=== PATIENT | female | born 1945 | race Caucasian/White ===

== ENCOUNTER → 2018-11-24 15:10 | Outpatient (POV) | payer MEDICARE, SELFPAY | PROVIDERS: Visit Provider Dermatology | DX: Z00.00 Encounter for general adult medical examination without abnormal findings (principal) ==

== ENCOUNTER → 2019-04-26 12:30 | Outpatient (CLI) | payer MEDICARE, OTHER, SELFPAY ==
--- NOTE | 2019-04-26 12:46 | CA_ITS ---
APPROVED REPORT Right Lower Extremity Venous Study for Historian Research Assistant: KELI Indications Lower Extremity Pain: Right Lower Extremity Edema: Right Vein Imaging CFV (R): compressive, spontaneous, phasic, augmentation FEM (R): compressive, spontaneous, phasic, augmentation POP (R): compressive, spontaneous, phasic, augmentation PTV (R): Compressible GSV (R): Compressible Peroneals (R):Compressible GAS (R): Compressible Findings No evidence of DVT or superficial thrombophlebitis in the veins scanned of the right lower extremity. 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 6.1 cm complex lesion with bloodflow seen right proximal medial calf, ? lymph node. Conclusion No evidence of DVT or superficial thrombophlebitis in the veins scanned of the right lower extremity. 3.1 cm complex lesion seen right popliteal fossa. The wall is slightly thickened. this may represent a complex Moore's cyst. Abscess or necrotic lymph node is included in the differential diagnosis. 6.1 cm complex lesion with bloodflow seen right proximal medial calf, ? lymph node. Critical Notification Physician Notified Date: 04/26/2019 Time: 13:23 Physician Name: Flower Winkler Electronically signed by : Tru Arzate MD 04/27/2019 09:39:00
== END ==
PROVIDERS: PCP Nurse Practitioner Family; Visit Provider Nurse Practitioner Family
DX: M79.604 Pain in right leg (principal); R60.0 Localized edema
CPT/HCPCS: 93971

== ENCOUNTER → 2019-04-30 07:36 | Outpatient (CLI) | payer MEDICARE, OTHER, SELFPAY ==
[2019-04-30 07:54] LABS: Blood Urea Nitrogen 21 mg/dL (7-18); Creatinine,Serum 0.95 mg/dL (0.55-1.02); Estimated Glomerular Filt Rate 58 ml/min (>60); GFR (African American) 70 ML/MIN (>60)
--- NOTE | 2019-04-30 08:23 | MR_ITS ---
PROCEDURE: MR LOWER LEG RT WO/W CON CLINICAL INDICATION: MASS OF RIGHT LOWER LEG Pain and swelling, pain behind the knee COMPARISON: CA VENOUS DOPPLER LE RT from 04/26/2019 TECHNIQUE: Multiplanar multi echo sequences are performed without and with gadolinium enhancement FINDINGS: Metallic artifact obscures the popliteal region somewhat. There does appear to be a Moore's cyst extending from the popliteal region measuring approximately 4 x 2.6 cm. There is a 8.5 x 2.1 cm elliptical area of abnormal signal intensity along the anterior aspect of the medial head of the gastrocnemius muscle in the proximal leg. This is isointense on T1 and the comes hyperintense on T2. This appears to be extrinsic to the gastrocnemius muscle but within the fascia and may represent a hematoma. Cannot exclude the possibility of a solid lesion such as a sarcoma. No definite enhancement. This however is difficult to ascertain due to the moderate degree of artifact. No other significant anomalies are evident. IMPRESSION: There is a longitudinal spindle shaped area of abnormal signal intensity along the anterior aspect of the right gastrocnemius muscle medial head in the proximal leg as described above. This may represent a hematoma. Cannot exclude the possibility of a neoplastic process. Suggest short-term ultrasound follow-up in 2-4 weeks. If this is not show resolution then, fine needle aspiration could be performed with sonographic guidance. 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 Dictated by: Tru Arzate MD 05/01/2019 13:22 Signed by: <Electronically signed by Tru Arzate MD in [facility]> 05/04/2019 20:10
== END ==
PROVIDERS: Visit Provider Internal Medicine Adolescent Medicine
DX: R22.41 Localized swelling, mass and lump, right lower limb (principal)
CPT/HCPCS: 36415; 73720; 82565; 84520; A9576

== ENCOUNTER → 2019-06-21 13:56 | Outpatient (CLI) | payer SELFPAY ==
--- NOTE | 2019-06-21 14:00 | CT_ITS ---
PROCEDURE: CT HEART W CALCIUM SCORE CLINICAL HISTORY: SCREENING COMPARISON: No exams were available for comparison TECHNIQUE: Axial images obtained with sagittal and coronal reformats. All CT scans at this facility use one or more dose reduction, viz: automated exposure control, ma/kV adjustment per patient size (including targeted exams where dose is matched to indication, i.e. head), or iterative reconstruction technique. FINDINGS: Coronary artery calcium score is 0 indicating no identifiable atherosclerotic plaque with very low cardiovascular disease risk. Incidental old granulomatous disease. There is some scarring in the right paraspinal region. Degenerative changes thoracic spine IMPRESSION: Very low cardiovascular disease risk Dictated by: Tru Arzate MD 06/21/2019 18:07 Electronically signed by Tru Arzate MD in [facility] 06/21/2019 18:07
== END ==
PROVIDERS: PCP Nurse Practitioner Family; Visit Provider Internal Medicine Cardiovascular Disease
DX: Z13.6 Encounter for screening for cardiovascular disorders (principal)
CPT/HCPCS: 75571

== ENCOUNTER → 2019-06-21 14:07 | Outpatient (CLI) | payer MEDICARE, OTHER, SELFPAY ==
--- NOTE | 2019-06-21 14:13 | US_ITS ---
PROCEDURE: US EXTREMITY RT LIMITED CLINICAL INDICATION: RT LOW LEG MASS COMPARISON: CA VENOUS DOPPLER LE RT from 04/26/2019 MR LOWER LEG RT WO/W CON from 04/30/2019 FINDINGS: In the deep aspect of the right lower leg there is a oval area of decreased echogenicity. The measurements are somewhat difficult to ascertain due to the long length of the lesion this is at least 6-8 cm in length and 1.7 cm in thickness corresponding to the MRI abnormality. This is hypoechoic but not cystic. Once again, the differential diagnosis would include a hematoma or neoplasm. In addition, there is a Moore's cyst noted posteriorly and superiorly in the popliteal fossa at 4 x 3.5 cm with some thickening of the capsule of the cyst. IMPRESSION: 1. Hypoechoic oval soft tissue mass in the right leg corresponding to the MRI abnormality. Differential diagnosis includes hematoma or neoplasm. Consider fine needle aspiration with sonographic guidance with on-site pathologist.. 2. Moore's cyst Dictated by: Tru Arzate MD 06/21/2019 17:25 Electronically signed by Tru Arzate MD in [facility] 06/21/2019 17:25
== END ==
PROVIDERS: PCP Nurse Practitioner Family; Visit Provider Nurse Practitioner Family
DX: R22.41 Localized swelling, mass and lump, right lower limb (principal)
CPT/HCPCS: 76882

== ENCOUNTER → 2020-02-14 16:24 | Outpatient (CLI) | payer MEDICARE, OTHER, SELFPAY ==
[2020-02-14 18:25] LABS: Chloride 103 mmol/L (98-107); Sodium 139 mmol/L (136-145)
[2020-02-14 18:26] LABS: Potassium 4.1 mmoL/L (3.5-5.1)
[2020-02-14 18:28] LABS: Alanine Aminotransferase 24 U/L (12-78); Alkaline Phosphatase 76 U/L (38-126); Anion Gap 9.1 mEq/L (5-15); Aspartate Amino Transferase 30 U/L (14-36); Bilirubin,Total 0.7 mg/dl (0.2-1.3); Blood Urea Nitrogen 16 mg/dl (7-17); Carbon Dioxide 31 mmol/L (22.0-30.0); Cholesterol 141 mg/dl (140-200); Estimated Glomerular Filt Rate 70 ml/min (>60); GFR (African American) 85 ML/MIN (>60); Triglycerides 126 mg/dl (30-150); VLDL Cholesterol 25 mg/dL (0-40)
[2020-02-14 18:29] LABS: Albumin Level 4.4 g/dl (3.5-5.0); Albumin/Globulin Ratio 1.7 (1.1-1.8); Basophils # 0.1 K/mm3 (0-0.2); Basophils % 0.8 % (0.1-2.0); Calcium 9.5 mg/dl (8.4-10.2); Chol/HDL Ratio 2.4 (1-3.5); Eosinophils # 0.2 K/mm3 (0.0-0.4); Eosinophils % 2.8 % (0.1-12.0); Globulin 2.6 g/dL (1.3-3.2); Glucose 99 mg/dl (74-100); HDL Cholesterol 58 mg/dl (40-60); Hematocrit 40.8 % (37.0-47.0); Hemoglobin 13.4 g/dL (12.2-16.2); Lymphocytes # 1.5 K/mm3 (0.7-4.5); Lymphocytes % 21.8 % (10-50); Magnesium 2.2 mg/dl (1.6-2.3); Mean Corpuscular Hemoglobin 30.6 pg (27.0-31.2); Mean Corpuscular Volume 92.8 fl (81-99); Mean Platelet Volume 7.8 fl (7.4-10.4); Monocytes # 0.4 K/mm3 (0.1-1.0); Neutrophils # 4.9 K/mm3 (1.8-7.8); Neutrophils % 69.6 % (37.0-80.0); Platelet Count 234 K/mm3 (142-424); Red Blood Count 4.39 M/mm3 (4.20-5.40); Red Cell Distribution Width 13.8 % (11.5-17.5); White Blood Count 7.1 K/mm3 (4.8-10.8)
[2020-02-14 18:40] LABS: Direct LDL Cholesterol 61.51 mg/dL (100-129)
[2020-02-14 19:00] LABS: Thyroid Stimulating Hormone 3.16 uIU/mL (0.465-4.68)
[2020-02-14 19:17] LABS: Triiodothryronine (T3) Uptake 39 % (23.5-40.5)
[2020-02-14 19:18] LABS: Free Thyroxine Index 3.5 ug/dL (5.93-13.13)
[2020-02-16 09:41] LABS: Vitamin B12 730 pg/mL (232-1245); Vitamin D 25 Hydroxy 37.7 ng/mL (30.0-100.0)
== END ==
PROVIDERS: Visit Provider Internal Medicine Adolescent Medicine
DX: R00.2 Palpitations (principal); E78.2 Mixed hyperlipidemia; E53.8 Deficiency of other specified B group vitamins; E55.9 Vitamin D deficiency, unspecified
CPT/HCPCS: 36415; 80053; 80061; 82607; 82652; 83735; 84436; 84443; 84479; 85025; 93225; 93226

== ENCOUNTER → 2020-02-28 10:38 | Outpatient (CLI) | payer MEDICARE, OTHER, SELFPAY ==
--- NOTE | 2020-02-28 10:43 | CA_ITS ---
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: Natalia Canela RDCS Ht: 5 ft 9 in Wt: 183lbs BSA: 1.99 BP: 110/70 mmHg Indications: ARRHYTHMIA VENTRICULAR BIGEMINY 2D Dimensions LVOT 1.77 cm (M/F) 1.5-2.5 M-Mode Dimensions RVDd 2.32 cm (0.9-2.6) LVDd 4.18 cm (3.5-5.7) LVDs 3.18 cm (3.5-5.7) IVSd 0.57 cm (0.6-1.1) PWd 0.64 cm (0.6-1.1) EF (Teich) 48.10% FS 23.90% EDV (Teich) 77.70 mL ESV (Teich) 40.30 mL LV Diastology E/A Ratio 0.80 Mitral Valve MV A Velocity 70.00 (40-130 cm/s) Left Ventricle Left atrium is mildly enlarged, left ventricle is normal size, left ventricle wall thickness is upper limit of the normal, there is preserved left ventricular systolic function, visually estimated ejection fraction 55% with no regional wall motion abnormality, diastolic parameters are inconclusive. Right Ventricle Right atrium and right ventricular normal size and contractility. Aortic Valve Aortic valve is thickened and calcified leaflet chordae display good mobility, there is no aortic stenosis or aortic insufficiency. Mitral Valve Mitral valve leaflets are minimally thickened, there is mild mitral regurgitation. Tricuspid Valve Tricuspid valve is grossly normal, there is mild tricuspid regurgitation. Calculated right ventricular systolic pressure is 35 mmHg. Pulmonic Valve Pulmonic valve is poorly visualized. There is mild pulmonic insufficiency. Great Vessels Aortic root is normal size. Pericardium No significant pericardial effusion noted. Conclusion 1. Mildly enlarged left atrium, normal left ventricular size, visually estimated ejection fraction 55% with no regional wall motion abnormality, diastolic parameters are inconclusive. 2. Mild mitral and tricuspid regurgitation, calculated right ventricular systolic pressure is 35 mmHg. 3. No significant pericardial effusion noted. Electronically signed by : Antonio Andrade, 02/28/2020 19:25:25
== END ==
PROVIDERS: PCP Internal Medicine Adolescent Medicine; Visit Provider Internal Medicine Adolescent Medicine
DX: R00.8 Other abnormalities of heart beat (principal)
CPT/HCPCS: 93306

== ENCOUNTER → 2020-09-18 13:27 | Outpatient (CLI) | payer MEDICARE, OTHER, SELFPAY ==
--- NOTE | 2020-09-18 13:35 | XR_ITS ---
PROCEDURE: XR SHOULDER RT MIN 2V CLINICAL INDICATION: ROTATOR CUFF SYNDROME,RT SHOULDER PAIN COMPARISON: No exams were available for comparison FINDINGS: No fracture or dislocation. No lytic or blastic change. There is normal mineralization. There are mild osteoarthritic changes of the acromioclavicular joint and mild hypertrophy along the subacromial region with subacromial stenosis. Mild osteoarthritic changes also present at the glenohumeral joint. Other findings:None. 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
== END ==
PROVIDERS: PCP Internal Medicine Adolescent Medicine; Visit Provider Internal Medicine Adolescent Medicine
DX: M25.511 Pain in right shoulder (principal)
CPT/HCPCS: 73030

== ENCOUNTER 2021-11-06 17:00 | Outpatient (RCR) | payer MEDICARE, OTHER, SELFPAY | END 2021-11-06 17:05 | disposition home or self-care (01) | LOC: PT 17:00 | PROVIDERS: PCP Internal Medicine Adolescent Medicine; Visit Provider Orthopaedic Surgery | DX: M25.561 Pain in right knee (principal); Z96.651 Presence of right artificial knee joint; Z09 Encounter for follow-up examination after completed treatment for conditions other than malignant neoplasm | CPT/HCPCS: 97010; 97014; 97110; 97163; 97164; G0283 ==

== ENCOUNTER 2022-02-27 16:30 | Outpatient (RCR) | payer MEDICARE, OTHER, SELFPAY | END 2022-02-27 16:35 | disposition home or self-care (01) | LOC: PT 16:30 | PROVIDERS: PCP Internal Medicine Adolescent Medicine; Visit Provider Orthopaedic Surgery | DX: M25.551 Pain in right hip (principal); Z96.641 Presence of right artificial hip joint | CPT/HCPCS: 97010; 97014; 97110; 97163; 97164; G0283 ==